=== PATIENT | male | born 1990 | race Caucasian/White ===

== ENCOUNTER 2017-10-14 04:07 | Emergency (ER) | payer OTHER ==
[~2017-10-14] VITALS: Ht 162.6 cm; Wt 68.0 kg
[2017-10-14 04:10] VITALS: BP 128/78
[2017-10-14] MEDS ORDERED: LIDOCAINE 1%-EPI 1:100,000 20 ML VIAL TP ONE (04:30)
[2017-10-14] MEDS ORDERED: TDAP [DIPH/PERTUSSIS/TET] 0.5 ML VIAL IM ONE ×2 (04:30→04:44)
== END 2017-10-14 05:16 | disposition home or self-care (01) ==
LOC: ER 04:07
DX: S01.511A Laceration without foreign body of lip, initial encounter (principal); Y04.2XXA Assault by strike against or bumped into by another person, initial encounter; Y93.89 Activity, other specified; Y92.89 Other specified places as the place of occurrence of the external cause; Y99.8 Other external cause status
CPT/HCPCS: 90715; A4606; A6402; Z7610